=== PATIENT | male | born 1990 | race Caucasian/White ===

== ENCOUNTER 2023-09-07 20:01 | Emergency (ER) | payer OTHER ==
[2023-09-07 20:18] VITALS: BP 139/80; PULSE 76; RESP 18; TEMP 98; BMI 25.1
== END 2023-09-07 21:27 | disposition home or self-care (01) ==
LOC: JERFT 20:01
PROC: 0XQKXZZ Repair Left Hand, External Approach (ICD-10-PCS; principal; 2023-09-07)
DX: S61.412A Laceration without foreign body of left hand, initial encounter (principal); W26.0XXA Contact with knife, initial encounter
CPT/HCPCS: 73130-TC-LT-FY; 99283-25